=== PATIENT | male | born 1965 | race African-American/Black ===

== ENCOUNTER 2022-04-26 12:38 | Emergency (ER) | payer BC, SELFPAY ==
--- NOTE | ~2022-04-26 | US_ITS ---
EXAMINATION: US venous doppler [facility] DATE: 04/26/2022 14:28 INDICATION: Left lower limb pain and swelling TECHNIQUE: Grayscale ultrasound images without and with compression and Doppler ultrasound images of the bilateral lower extremity veins were obtained. COMPARISON: None. FINDINGS: Occlusive appearing noncompressible deep venous anastomosis in the paired right posterior tibial and peroneal veins at the calf. The visualized portions of right common femoral vein, profunda (deep) fem oral vein, femoral vein, popliteal vein and greater saphenous vein outflow are patent. Occlusive appearing noncompressible deep venous anastomosis in the paired left posterior tibial and p eroneal veins at the calf. The visualized portions of left common femoral vein, profunda femoral vein , femoral vein, popliteal vein and greater saphenous vein outflow are patent. IMPRESSION: 1. Bilateral [id number] deep venous anastomosis in the bilateral posterior tibial and peroneal v eins. Reviewed, dictated and finalized at location A. [employer] IMPRESSION: 1. Bilateral [id number] deep venous anastomosis in the bilateral posterior tibial and peroneal veins.
[2022-04-26 13:00] VITALS: BP 117/84; PULSE 87; RESP 14; TEMP 37.3; O2SAT 97
--- NOTE | 2022-04-26 16:52 | ED.GENADULT ---
HPI - General Adult General Chief complaint: Extremity Problem,Nontraumatic Stated complaint: right leg pain-history of DVT Time Seen by Provider: 04/26/22 14:54 History of Present Illness HPI narrative: 57-year-old male who was recently diagnosed with lower extremity DVT after having a bowel resection presents to our department with lower leg pain bilaterally. Patient was diagnosed with DVTs and has been prescribed Xarelto which he takes daily. He feels as though the pain in his legs is not improving. Patient had venous Dopplers performed prior to arrival to the ER which demonstrated bilateral DVTs in the popliteal and peroneal veins. Review of Systems Review of Systems: CONSTITUTIONAL: Denies fever, chills, or sweats. EYES: Denies visual changes, redness, or discharge. ENT: Denies rhinorrhea, congestion, sore throat, or otalgia. CARDIOVASCULAR: Denies chest pain, palpitations, or edema. RESPIRATORY: Denies cough or dyspnea. GASTROINTESTINAL: Denies abdominal pain, nausea, vomiting, or diarrhea. GENITOURINARY: Denies dysuria or hematuria. SKIN: Denies rash or itching. MUSCULOSKELETAL: Denies back pain, joint pain, or myalgia. NEUROLOGIC: Denies headache, numbness, or weakness. PSYCHIATRIC: Denies anxiety or depression. Exam Narrative: GENERAL: Well-appearing, well-nourished, and in no acute distress. HEAD: Normocephalic, atraumatic. EYES: PERRLA and EOMI. ENT: Nares clear, no rhinorrhea or epistaxis. Mucous membranes moist. NECK: Supple. CHEST: Clear to auscultation. No respiratory distress. HEART: Regular rate and rhythm. No murmur heard. Normal peripheral pulses. ABDOMEN: Soft, nontender, nondistended, normal active bowel sounds. EXTREMITIES: Normal range of motion. No edema. SKIN: Warm, dry, no rash. NEURO: No focal deficits. Alert and oriented x3. PSYCH: Normal mood and affect. Course Vital Signs Vital signs: Vital Signs Temperature 99.2 F 04/26/22 13:00 Pulse Rate 87 04/26/22 13:00 Respiratory Rate 14 04/26/22 13:00 Blood Pressure 117/84 04/26/22 13:00 Pulse Oximetry 97 04/26/22 13:00 Oxygen Delivery Room Air 04/26/22 13:00 Temperature 99.2 F 04/26/22 13:00 Pulse Rate 87 04/26/22 13:00 Respiratory Rate 14 04/26/22 13:00 Blood Pressure 117/84 04/26/22 13:00 Pulse Oximetry 97 04/26/22 13:00 Oxygen Delivery Room Air 04/26/22 13:00 Medical Decision Making MDM Narrative Medical decision making narrative: Venous Doppler demonstrates bilateral lower extremity DVTs. Patient is already taking the appropriate medication regimen to treat these DVTs. We have discussed continuation of this treatment and patient has assured me that he has plenty of Xarelto at home as well as refills waiting at the pharmacy. Vital Signs Vital Signs: Vital Signs Temperature 99.2 F 04/26/22 13:00 Pulse Rate 87 04/26/22 13:00 Respiratory Rate 14 04/26/22 13:00 Blood Pressure 117/84 04/26/22 13:00 Pulse Oximetry 97 04/26/22 13:00 Oxygen Delivery Room Air 04/26/22 13:00 Temperature 99.2 F 04/26/22 13:00 Pulse Rate 87 04/26/22 13:00 Respiratory Rate 14 04/26/22 13:00 Blood Pressure 117/84 04/26/22 13:00 Pulse Oximetry 97 04/26/22 13:00 Oxygen Delivery Room Air 04/26/22 13:00 Discharge Plan Discharge Clinical Impression: Deep vein thrombosis of lower extremity Patient Disposition: Home, Self-Care Condition: Stable Instructions: Antibiotic Form Additional Instructions: Please continue taking your Xarelto as prescribed. Return to the ER if you begin to have chest pain or difficulty breathing. Return to the ER if you are unable to obtain your next dose of medications. Follow-up/Referrals: PHYSICIAN NOT ON STAFF,NONSTAFF [Primary Care Provider] - Time of Disposition: 16:50
== END 2022-04-26 17:39 | disposition home or self-care (01) ==
PROVIDERS: Emergency Provider Emergency Medicine
DX: I82.443 Acute embolism and thrombosis of tibial vein, bilateral (principal); I82.453 Acute embolism and thrombosis of peroneal vein, bilateral; Z79.01 Long term (current) use of anticoagulants
CPT/HCPCS: 93970; 99284